=== PATIENT | male | born 2000 | race Caucasian/White ===

== ENCOUNTER 2024-08-26 04:04 | Observation (INO) | payer OTHER, SELFPAY ==
[2024-08-26] VITALS (16 sets, daily range): BP systolic 127–158; BP diastolic 58–97; PULSE 70–97; RESP 14–18; TEMP 36.6–37.6; O2SAT 95–100; BMI 32.1; BMI 32.2
--- NOTE | 2024-08-26 04:07 | EDS_ITS ---
HPI History of Present Illness Chief Complaint: Abd Pain PFSH PFS Medical History no medical history Home Medications ?Medication ?Instructions ?Recorded ?Last Taken ?Type NK 08/26/24 Unknown History Allergy/AdvReac Type Severity Reaction Status Date / Time No Known Allergies Allergy Verified 08/26/24 04:05 EXAM Physical Exam Const Vital Signs: 08/26/24 04:04 Temperature 99.6 F H Temperature Source Oral Pulse Rate 85 Respiratory Rate 14 Blood Pressure 158/97 H Blood Pressure Mean 117 Pulse Ox 100 Oxygen Delivery Method Room Air [facility] [place] Narrative Medical decision making narrative: HISTORY OF PRESENT ILLNESS: Chief complaint: Abdominal pain 24-year-old male no past medical surgical history presents with abdominal pain that began 2 hours prior to arrival. Notes associated chills but denies nausea or vomiting. He further states pain occurred suddenly. It was initially umbilical and generalized right lower quadrant. No discharge when he was urinating. Denies testicular pain. Denies frequency urgency or dysuria. No history abdominal surgery. Last bowel movement was yesterday. No vomiting no nausea. REVIEW OF SYSTEMS: Pertinent positives: Abdominal pain, chills Pertinent negatives: Vomiting PHYSICAL EXAM: Nursing triage notes reviewed, Vital signs reviewed Constitutional: please see [facility] HENT: MMM Eyes: Pupils equal round and reactive to light, Extraocular muscles intact Neck: No stridor, no JVD, full neck ROM Lungs: Clear to auscultation, No wheezing or rales. No increased work of breathing, no conversational dyspnea, no accessory muscle use, no nasal flaring. No respiratory distress noted Heart: Regular rate and rhythm, No murmurs, No rubs and No gallops, 2+ distal pulses (radial, femoral, posterior tibial) in all extremities Abdomen: Soft, right lower quadrant TTP but no rigidity, rebound or guarding, no obvious peritoneal signs, no palpable pulsatile abdominal masses, no auscultated abdominal bruit : No CVAT, normal testicular lie, no TTP , no mass. No scrotal edema or cellulitis Extremities: No edema Neuro: No new focal neurological deficits, cranial nerves II through XII intact, 5/5 strength in all present extremities. Intact sensation to light touch in all present extremities, 2+ reflexes bilateral patella tendons. Skin: No rash or lesions noted MEDICAL DECISION MAKING: Chief Complaint: please see [facility] External records reviewed: [Reviewed prior imaging studies: No recent adVanced imaging of the abdomen pelvis noted Factors affecting care: None Social determinants of health: Denies alcohol or illicit drug History obtained from others: none Consults: n General Surgery (Dr. Feng) MDM Narrative: The patient was initially hemodynamically stable, afebrile and nontoxic- appearing. Abdominal exam [with right lower quadrant TTP. No peritoneal signs. I considered the following differential diagnosis: AAA, small bowel obstruction, abdominal perforation, appendicitis, pancreatitis, hepatobiliary pathology (acute cholecystitis), mesenteric ischemia, pathology (ie nephrolithiasis, pyelonephritis). I obtained a broad lab and imaging to further determine if the patient was suffering from a life-threatening etiology. Initially assessed the patient 1 L normal saline, 4 mg IV Zofran and 15 mg IV Toradol ALL IMAGES (IF OBTAINED) HAVE BEEN PERSONALLY REVIEWED AND INTERPRETED BY MYSELF. CBC with leukocytosis suggestive of systemic inflammation, no anemia or thrombocytopenia CT scan abdomen pelvis is read and reviewed personally by myself and showed evidence of an inflamed appendix. Radiologist agreed my interpretation. Discussed with general surgery Dr. Feng. Noted he would come and see the patient. Awaiting Dr. Garza's final recommendations. Will give Zosyn in the meantime. The patient and/or family, caregivers express understanding. The patient and/or family, caregivers agrees with the plan. Shared decision making: I will have a discussion with the patient and or visitors regarding risk/benefits of further testing or admission. They will be made aware of of the risk/benefits inherent in this decision they will be given the opportunity to voice understanding. Total critical care time today provided was at least 35 minutes. This excludes separately billable procedures. Critical care time (if documented) is secondary to the patient having high probability of clinically significant/life threatening deterioration in the patient's condition which required my urgent intervention. Impression: 1. Acute abdominal pain 2. Acute appendicitis 3. Leukocytosis Dispo: Admit This note was generated with Re[employer]ee dictation software. It may contain incorrect words, spelling, and punctuation that were not noted in review of the chart prior to signing. Discharge Plan Triage Chief Complaint: Abd Pain ED Provider: Irvin Montalvo Dx/Rx/DC Orders Prescriptions: No Action NK Primary Care Provider: Care Physician,No Primary Referrals: Care Physician,No Primary [Primary Care Provider] - Print Language: Ukrainian
--- NOTE | 2024-08-26 04:13 | CT_ITS ---
PROCEDURE: ABDOMEN/PELVIS W IV CONT ONLY 08/26/2024 REASON FOR EXAM: RIGHT LOWER QUADRANT PAIN RULE OUT APPENDICITIS TECHNIQUE: ABDOMEN/PELVIS W IV CONT ONLY Coronal and Sagittal reconstruction series were provided. CONTRAST:VOLUME: mL One or more dose reduction techniques were used (e.g., Automated exposure control, adjustment of the mA and/or kV according to patient size, use of iterative reconstruction technique. RADIATION DOSE SUMMARY: CTDlvol: mGy DLP:mGycm COMPARISON: none FINDINGS: Relatively thickened appendix 8 mm in diameter with faint related fat stranding worrisome of appendicitis advise clinical and laboratory correlation. No obvious related collections. Average sized liver showing homogenous parenchymal attenuation. No dilated intra or extra-hepatic biliary tracts. Gall bladder showing no radiodense calculi. No abnormal mural thickening. Clear surrounding fat planes with no sizeable collections. Normal appearance of the pancreas with clear surrounding fat planes. The spleen, adrenal glands, aorta and IVC are unremarkable. Left renal lower calyceal 1 mm calculus. Bilateral renal hypodense cortical cysts, few of them show tiny calcifications. Both kidneys are of average size and showing smooth outline with preserved parenchymal thickness. No right renal calculi. No hydronephrosis. Distension of the urinary bladder showing no obvious masses. No obvious masses related to the pelvic viscera. The examined ascending colon, the transverse colon, the descending colon & small bowel loops are unremarkable. Diffuse wall thickening of the stomach. No ascites or free air. No obvious pathologically enlarged lymph nodes. Scanned osseous structures show no osseous destruction. Scanned lung bases show no obvious abnormalities. CT/Abdomen/Pelvis W IV Cont ONLY IMPRESSION: Relatively thickened appendix with faint related fat stranding worrisome of marilyn endicitis advise clinical and laboratory correlation. Left renal lower calyceal 1 mm calculus. Bilateral renal hypodense cortical cysts, few of them show tiny calcifications. Reading Location: [facility]
[2024-08-26] MEDS: 0.9% Normal Saline (1000mL) 1,000 ML 999 ML IV (04:19)
[2024-08-26 04:20] LABS: Hematocrit 44.8 % (40-54); Hemoglobin 15.4 g/dL (13.0-16.5); Immature Granulocytes Count 0.060 X10^3/uL (0.0-0.0); Mean Corp Hgb Conc 34.4 g/dL (32-36); Mean Corpuscular Volume 85.8 fL (80-94); Mean Platelet Vol. 9.4 fl (6.2-12.0); NRBC Flagged by Analyzer 0 % (0-5); Platelet Count 233 K/mm3 (150-450); RBC Distribution Width CV 12.1 % (11.6-14.6); RBC Distribution Width SD 37.5 fl (35.1-43.9); Red Blood Count 5.22 M/mm3 (4.6-6.2); White Blood Count 14.3 K/mm3 (4.4-11.0)
[2024-08-26] MEDS: Piperacil/Tazobactam 3.375 GM in 0.9% Normal Saline (50mL MB+) 50 ML IV (05:22)
[2024-08-26 05:25] LABS: AST(SGOT) 37 U/L (<=37); Alanine Aminotransfer ALT/SGPT 34 U/L (<=46); Albumin, Serum 4.7 g/dL (3.5-5.0); Alkaline Phosphatase 62 U/L (40-129); Anion Gap 12 (5-15); BUN 20 mg/dL (4-19); BUN/Creat Ratio 18.9 RATIO (10-20); Calcium,Total 9.3 mg/dL (7.6-11.0); Carbon Dioxide 25.1 mmol/L (21.0-32.0); Chloride 104 mmol/L (98-108); Estimated Creatinine Clearance 138.54 ml/min (50-250); Globulin 2.7 g/dL (2.2-4.2); Glucose 105 mg/dL (70-99); Lipase 37 U/L (13-75); Potassium 3.7 mmol/L (3.3-5.1)
[2024-08-26 05:42] LABS: Mucous, Urine 0 SEEN /hpf (<or=2+); Red Blood Cells-Urine 0 SEEN /hpf (0-5); Squamous Epithelial Cells - UA 0 SEEN /hpf (0-5)
[2024-08-26 05:44] LABS: Color, Urine Straw (Yellow); Glucose, Dipstick Normal (Normal); Ketone-Dipstick Negative (Negative); Leukocyte Esterase-Dipstick Negative /ul (Negative); Nitrite-Dipstick Negative (Negative); Occult Blood-Urine Negative /ul (Negative); Protein-Dipstick Negative (Negative); Specific Gravity, Urine 1.005 (1.002-1.030); Urine Bilirubin Dipstick Negative (Negative)
--- NOTE | 2024-08-26 07:57 | HP.PCM.SX_ITS ---
HPI - General General Date of Admission: 08/26/24 HPI Narrative NEMESIO BLACKWELL, is a 24 M who presents with right lower quadrant pain. He reports the pain started at 2 AM this morning. He says that it migrated from the periumbilical region to the right lower quadrant. He denies fevers or chills. He denies nausea or vomiting. PFSH Medical History no medical history Home Medications ?Medication ?Instructions ?Recorded ?Last Taken ?Type ascorbic acid (vitamin C) 1,000 mg 1 g PO DAILY supple ment 08/26/24 Unknown History tablet (C-1000) cholecalciferol (vitamin D3) .ROUTE supplemnt 08/26/24 Unknown History multivitamin 1 tab PO DAILY supplement Unknown History soybean, fermented 50 mg capsule mg PO BID blood thinn er/ htn 08/26/24 Unknown History (Nattokinase) Allergy/AdvReac Type Severity Reaction Status Date / Time No Known Allergies Allergy Verified 08/26/24 04:05 Surgical History (Updated 08/26/24 @ 06:16 by Kym Velez) [place] teeth extracted Social History Smoking Status: Never smoker Vital Signs Vital Signs Vital Signs: 08/26/24 04:04 08/26/24 05:17 08/26/24 05:23 Temperature 99.6 F H 98 F 98.6 F Temperature Source Oral Oral Pulse Rate 85 97 85 Respiratory Rate 14 14 14 Blood Pressure 158/97 H 147/84 H 155/88 H Blood Pressure Mean 117 105 110 Blood Pressure Source Monitor Blood Pressure Position Blood Pressure Location Pulse Ox 100 97 98 Oxygen Delivery Method Room Air Room Air 08/26/24 06:22 Temperature 98.3 F Temperature Source Oral Pulse Rate 85 Respiratory Rate 16 Blood Pressure 157/76 H Blood Pressure Mean 103 Blood Pressure Source Monitor Blood Pressure Position Semi-Fowlers Blood Pressure Location Right Arm Pulse Ox 99 Oxygen Delivery Method Room Air Weight Weight: 237 lb 14.06 oz Body Mass Index (BMI) 32.2 Physical Exam Const oriented x3 and no apparent distress Resp normal respiratory effort GI soft to palpation Palpation: tender RLQ Extremity normal to inspection Results Lab / Micro Data 08/26/24 04:09 08/26/24 04:09 Labs: Laboratory Results - last 24 hr 08/26/24 04:09: WBC 14.3 H, RBC 5.22, Hgb 15.4, Hct 44.8, MCV 85.8, MCH 29.5, MCHC 34.4, RDW Std Deviation 37.5, RDW Coeff of Bandar 12.1, Plt Count 233, MPV 9.4, Immature Gran % (Auto) 0.400, Neut % (Auto) 74.5 H, Lymph % (Auto) 15.4 L, Spink % (Auto) 8.2, Eos % (Auto) 1.2, Baso % (Auto) 0.3, Absolute Neuts (auto) 10.7 H, Absolute Lymphs (auto) 2.21, Nucleated RBC % 0, Sodium 141, Potassium 3.7, Chloride 104, Carbon Dioxide 25.1, Anion Gap 12, BUN 20 H, Creatinine 1.05, Estim Creat Clear Calc 138.54, Est GFR (MDRD) Non-Af 102, BUN/Creatinine Ratio 18.9, Glucose 105 H, Calcium 9.3, Total Bilirubin 0.46, AST 37, ALT 34, Alkaline Phosphatase 62, Total Protein 7.4, Albumin 4.7, Globulin 2.7, Albumin/Globulin Ratio 1.8, Lipase 37 08/26/24 05:25: Urine Color Straw, Urine Clarity Clear, Urine pH 7.0, Ur Specific [place] 1.005, Urine Protein Negative, Urine Glucose (UA) Normal, Urine Ketones Negative, Urine Occult Blood Negative, Urine Nitrite Negative, Urine Bilirubin Negative, Urine Urobilinogen Normal, Ur Leukocyte Esterase Negative, Urine RBC 0 SEEN, Urine WBC 0-5 SEEN, Ur Squamous Epith Cells 0 SEEN, Urine Bacteria 0 SEEN, Urine Mucus 0 SEEN Imaging Radiology Impression Abdomen/Pelvis CT 08/26/24 04:13 IMPRESSION: Relatively thickened appendix with faint related fat stranding worrisome of appendicitis advise clinical and laboratory correlation. Left renal lower calyceal 1 mm calculus. Bilateral renal hypodense cortical cysts, few of them show tiny calcifications. Reading [facility] Assessment & Plan Assessment/Plan (1) Acute appendicitis: QUALIFIERS: Acute appendicitis type: unspecified acute appendicitis type Qualified Code(s): K35.80 - Unspecified acute appendicitis PLAN: The patient has acute appendicitis based on his CT results and history. He also has a white count of 14. I discussed laparoscopic appendectomy with the patient in detail. I discussed the risks including but not limited to bleeding, infection, injury to other organs such as the bowel, bladder, ureter. Patient understands the risks and is willing to proceed. Marques Feng MD Pager: [facility] [address] [place] [address] [address] [place] [address] Office:
--- NOTE | 2024-08-26 08:00 | APP_PTH ---
PATIENT: NEMESIO BLACKWELL LOC: MS3 U#:[id number] AGE/SX: 24/M ROOM: MS316 RE08/26/[address]: Dr. Marques Feng MD : 2000 BED: 1 DIS: 08/26/2024 SPEC #: [id number] RECD: 08/26/24 13:30 STATUS: JIMBO ERVIN #: [id number] DENIS: 08/26/24 08:[address]: Marques Feng DEPT: SURGICAL PATHOLOGY RECD BY: Brayden Tesfaye ENTERED: 08/26/24 15:13 SP TYPE: APPENDIX OTHR DR: Marleni Primary Care Phys Tissues: A - Appendix, NOS Procedures: Surgery Specimen Level III HEADER OPERATION: Laparoscopic appendectomy PRE-OP DIAGNOSIS: Acute appendicitis TISSUE SUBMITTED: A- Appendix MICROSCOPIC DIAGNOSIS A. Appendix, acute appendicitis, appendectomy: Acute appendicitis with periappendicitis. MICROSCOPIC DESCRIPTION Slides are reviewed. GROSS DESCRIPTION Received in formalin labeled with the patient's name and date of . Designated as appendix is a 9.1 x 0.8 cm mendiola-pink appendix with a focal incision, nearly transecting the specimen. The margin is inked black and shaved. Sectioning reveals a mendiola-pink, focally congested mucosa and a possible fecalith. Pharmaceutical Salesperson sections are submitted in 1 cassette. IA 08/26/2024 CPT:48721
[2024-08-26] MEDS: 0.9% Normal Saline (1000mL) 1,000 ML 100 ML IV (08:37)
--- NOTE | 2024-08-26 10:11 | NURSING ---
Pt sent for surgery
--- NOTE | 2024-08-26 10:33 | PRE.ANES_ITS ---
ASA Classification* ASA Classification ASA Classification: 1 Assessment & Plan Anesthesia* Anesthesia Assessment Anesthesia Assessment: Discussed sedation and/or anesthesia options, risks, benefits, and alternatives with patient/parents/legal guardian/POA. Questions invited. The patient/parents/legal guardian/POA seems to understand and agrees to proceed with anesthesia plan. Reviewed the physical assessment, medical history, allergy history and patient home medications list prior to surgery/procedure/anesthetic and documented any changes. Performed airway and anesthesia risk assessments. Anesthesia Type Anesthesia Type: General History Source History Obtained from:: Patient and Chart Anesthesia Focused Assessment* Temperature: 98.5 F Pulse Rate: 78 Blood Pressure: 157/76 Respiratory Rate: 16 Pulse Ox: 97 Oxygen Delivery Method: Room Air Airway Assessment Mouth opens: >3 cm Mallampati Score: I Teeth Condition: Intact Neck Range of motion (ROM): Full ROM Labs Anesthesia Preop lab: CBC WBC 14.3 K/mm3 (4.4-11.0) H 08/26/24 04:09 5 RBC 5.22 M/mm3 (4.6-6.2) 08/26/24 04:09 08/26/24 Hgb 15.4 g/dL (13.0-16.5) 08/26/24 04:09 08/26/24 Hct 44.8 % (40-54) 08/26/24 04:09 08/26/24 Plt Count 233 K/mm3 (150-450) 08/26/24 04:09 08/26/24 CHEMISTRY Potassium 3.7 mmol/L (3.3-5.1) 08/26/24 04:09 08/26/24 Sodium 141 mmol/L (133-145) 08/26/24 04:09 08/26/24 BUN 20 mg/dL (4-19) H 08/26/24 04:09 08/26/24 Creatinine 1.05 mg/dL (0.70-1.20) 08/26/24 04:09 08/26/24 Glucose 105 mg/dL (70-99) H 08/26/24 04:09 08/26/24 COAG Pre-Assessment Diagnosis/Proposed Procedure Planned Operative Procedure(s): Laparoscopic appendectomy Anesthesia History 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 When Was Last Pacemaker Check QUESTION #4 FULL TEXT: You/Your Family Experience fever (hyperthermia) with Anesthesia Last Oral Intake Last Oral intake: Last Oral Intake NPO since Meds taken in AM with sips of No 08/26/24 08:30 water? 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 turbine technician Female HX of Motion Sickness HX of N/V After Surgery Non-Smoker Duration of Surgery greater than 60 minutes Number of Risk Factors PONV Score Height & Weight Height & Weight: Anesthesia: Height & Weight Height 6 ft 08/26/24 08:30 Weight: 107.9 kg 08/26/24 08:30 Body Mass Index (BMI) 32.2 08/26/24 08:30 Respiratory Assessment Respiratory Assessment - senior wind turbine technician: Respiratory Tract Infection Hx - senior wind turbine technician Hx Respiratory Tract Infection No 08/26/24 06:20 STOP Sleep Apnea STOP Sleep Apnea - senior wind turbine technician: STOP Sleep Apnea - senior wind turbine technician Hx Hypertension No 08/26/24 06:18 Hx Sleep Apnea No 08/26/24 06:18 CPAP BIPAP Do you snore loudly (louder No 08/26/24 06:18 than talking or can be heard Do you often feel tired/ No 08/26/24 06:18 fatigued/ sleepy during daytime? Has anyone observed you stop No 08/26/24 06:18 breathing during sleep? STOP Results Negative 08/26/24 06:18 QUESTION #5 FULL TEXT : Do you snore loudly (louder than talking or can be heard through closed doors)? 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 Specify any problems Hx of Preganancy in last 3 N/A 08/26/24 06:18 Months Nurse Filling Out Transfusion DREELOY 08/26/24 06:18 & Questions: Date: 08/26/24 08/26/24 06:18 Time: 06:18 08/26/24 06:18 Patient unable to answer at this time (ie. confused, unrespo /Reproduction History /Reproductive History - senior wind turbine technician: /Reproductive Hx- senior wind turbine technician Hx Now No 08/26/24 06:20 Gestational Age (in weeks): EDC: Hx Hx Para Hx Section SAB No 08/26/24 06:20 Active Medications Active Medications: Current Medications Generic Name Dose Route Start Last Admin Trade Name Freq PRN Reason Stop Dose Admin Sodium Chloride 250 mls @ 15 mls/hr 08/26/24 06:02 IV .[id number] PRN Saline Flush Sodium Chloride 250 mls @ 15 mls/hr 08/26/24 06:02 IV .[id number] PRN Additional IVPB Infusion Sodium Chloride 1,000 mls @ 100 mls/hr 08/26/24 07:40 08/26/24 08:37 IV 100 mls/hr .Q10H MONTRELL Administration Morphine Sulfate 2 - 4 mg 08/26/24 07:38 Morphine 2 Mg/Ml Syringe IV Q2H PRN PRN Pain Score 4-10 Morphine Sulfate 2 - 4 mg 08/26/24 07:52 Morphine 4 Mg/Ml Syringe IV Q2H PRN PRN Pain Score 4-10 Ondansetron HCl 4 mg 08/26/24 07:38 Ondansetron 4 Mg/2 Ml Vial IV Q6H PRN PRN NAUSEA/VOMITING Sodium Chloride 10 - 40 ml 08/26/24 06:02 0.9% Saline Lock 10 Ml Syringe IV UD PRN SALINE FLUSH Sodium Chloride 10 - 40 ml 08/26/24 07:38 0.9% Saline Lock 10 Ml Syringe IV UD PRN SALINE FLUSH Sodium Chloride 10 - 40 ml 08/26/24 07:38 0.9% Saline Lock 10 Ml Syringe IV UD PRN SALINE FLUSH PFSH Medical History no medical history Home Medications ?Medication ?Instructions ?Recorded ?Last Taken ?Type ascorbic acid (vitamin C) 1,000 mg 1 g PO DAILY supple ment 08/26/24 Unknown History tablet (C-1000) cholecalciferol (vitamin D3) .ROUTE supplemnt 08/26/24 Unknown History multivitamin 1 tab PO DAILY supplement Unknown History soybean, fermented 50 mg capsule mg PO BID blood thinn er/ htn 08/26/24 Unknown History (Nattokinase) Allergy/AdvReac Type Severity Reaction Status Date / Time No Known Allergies Allergy Verified 08/26/24 04:05 Surgical History [place] teeth extracted Social History Smoking Status: Never smoker Review of Systems (Anesthesia) ROS Narrative System reviewed and no additional complaints, except as documented.
[2024-08-26] MEDS: 0.9% Normal Saline (1000mL) 850 ML IV (10:34)
[2024-08-26] MEDS: fentaNYL 250mcg vial 100 ML 100 MCG IV (10:42)
[2024-08-26] MEDS: Midazolam 2 MG/2 ML Syringe IV (10:43)
[2024-08-26] MEDS: Bupiv/Epi 0.25% 30 ML Vial (11:17)
--- NOTE | 2024-08-26 11:38 | PCM.POST.ANE ---
Anesthesia: Postop Eval I Current Vital Signs Temperature: 98.9 F Pulse Rate: 95 Blood Pressure: 132/69 Respiratory Rate: 16 Pulse Ox: 95 Oxygen Delivery Method: Room Air Assessment Airway patent: Yes Spontaneous unlabored respirations: Yes Mental status: Awake and Calm nausea: No Vomiting: No Anesthesia Complication: No Fluid Hydration Crystalloid volume administer (ml): 850 Total IV fluid infused: 850 Progress Note Anesthesia document: Postop Eval 1 completed: Yes
--- NOTE | 2024-08-26 11:46 | PCM.OPRPT ---
Operative Report (Standard) Operative Information Date of Procedure: 08/26/24 Pre-Operative Diagnosis: Acute appendicitis Post-Operative Diagnosis: Acute appendicitis Surgery/Procedure Performed: Laparoscopic appendectomy supervisor blasting: No Type of Anesthesia: General/Regional RN Documented Start/Stop Times: Operation Date: 08/26/24 08:00 Case Time Into Pre-Op 08/26/24 09:58 Out of Pre-Op 08/26/24 10:30 Anesthesia Start 08/26/24 10:38 Into Room 08/26/24 10:38 Procedure Start 08/26/24 10:59 Procedure End 08/26/24 11:22 Anesthesia End 08/26/24 11:30 Into Recovery 08/26/24 11:30 Out of Room 08/26/24 11:30 Procedure Start Time: 10:59 Procedure Stop Time: 11:22 Select all DRAINS/GRAFTS/IMPLANTS that apply: None Estimated Blood Loss: 5 Specimen collected: Yes Description of specimen(s) removed: Appendix Description of surgery: The patient was brought into the operating room and general anesthesia was induced. The left arm was tucked and the abdomen was prepped and draped in usual sterile fashion. A small midline incision was made superior to the umbilicus and deepened to the level of the fascia. The fascia was elevated and incised. The peritoneum was also elevated and incised. A finger sweep was performed and a balloon trocar was placed into the abdomen and inflated. The abdomen was insufflated to 15 mmHg and the camera was inserted and the abdomen was inspected for any injuries upon entering the abdomen. There were none. The patient was placed in Trendelenburg position and a 5 mm ports placed in the left lower quadrant and suprapubic areas under direct visualization. Next using atraumatic bowel graspers the appendix was identified. The appendix was grasped and elevated and Enseal was used to take down the mesoappendix. A stapler was used to come across the base of the appendix. The appendix was then placed in Endo Catch bag and removed through the umbilical incision. The staple line was inspected and found to be hemostatic and intact. The 2 5 mm ports are removed under direct visualization. The balloon trocar was deflated and removed and all the air was removed from the abdomen. The umbilical incision fascia was closed with an 0 Vicryl [id number] suture. The incisions were then irrigated with saline and dried. Local anesthetic was injected into the incision sites. The skin incisions were then closed with interrupted 4-0 Monocryl suture and Steri-Strips. Bandages were applied and the patient was awoken and taken to PACU in stable condition. Patient tolerated the procedure well. Surgical Findings: Inflamed appendix Complications Complications: No Admit VTE Documentation VTE Mechan Device Prophylaxis: SCD's
--- NOTE | 2024-08-26 11:47 | DCINST_ITS ---
Discharge Instructions Diet Discharge Diet: Light diet - advance as tolerated Activity Discharge Activity: May Not Drive (for 2-3 days or while taking narcotic pain medications) May shower in (days): 1 Lifting Restrictions: 15 pounds for 2 weeks Additional Activity Instructions:: Alternate ibuprofen and Tylenol for pain control, oxycodone for breakthrough pain Dressing / Incision Call your doctor if your incision/area has: Continuous Slow Oozing, Sudden Increased Bleeding, Increased Pain/ Swelling, Increased Redness and Foul Smelling Discharge Call your doctor if you observe: Fever of 101 or Higher Suture Line Care: Avoid Pulling/Pushing and Avoid Pinching/Bending Remove Dressing in: 2 days Cleanse incision/area with: Soap & Water Follow Up Care Please Follow Up With: Marques Feng MD When: Please call to schedule 2 week follow up appointment at [phone] Test Results: Test results from this visit will be discussed in further detail at your follow- up appointment, if applicable. Discharge Plan Admission Admit Date/Time: 08/26/24 07:38 Attending Provider: Marques Feng Primary Care Provider: Care Physician,Marleni Primary Discharge Orders/Prescriptions Prescriptions: New oxycodone 5 mg Tablet 5 - 10 mg PO Q4H PRN PRN (Reason: Pain Score 4-10) 5 Days Qty: 10 0RF Continued Nattokinase 50 mg capsule PO BID ascorbic acid (vitamin C) [C-1000] 1,000 mg tablet 1 g PO DAILY cholecalciferol (vitamin D3) .ROUTE multivitamin 1 tab PO DAILY Referrals / Follow Up: Care Physician,No Primary [Primary Care Provider] - Disposition Disposition (needs filled in before D/C Order can be placed): Home, Self Care
[2024-08-26] MEDS: Lactated Ringers 1,000 ML 15 ML IV (12:14)
--- NOTE | 2024-08-26 13:42 | POSTOPAN2_ITS ---
Anesthesia Postop Eval I Sum Postop Eval Completion status Anesthesia document: Postop Eval 1 completed: Yes Anesthesia Postop Eval I Summary Anesthesia Postop Eval I Summary: Anesthesia Postop Eval I: Assessment Summary Airway patent Yes 08/26/24 11:39 IT INFRASTRUCTURE [email or web address] Spontaneous unlabored Yes 08/26/24 11:39 IT INFRASTRUCTURE [email or web address] respirations Mental status Awake,Calm 08/26/24 11:39 IT INFRASTRUCTURE [email or web address] nausea No 08/26/24 11:39 IT INFRASTRUCTURE [email or web address] Vomiting No 08/26/24 11:39 IT INFRASTRUCTURE [email or web address] Anesthesia Postop Eval I: Fluid Summary Crystalloid volume administer 850 08/26/24 11:39 IT INFRASTRUCTURE [email or web address] (ml) Colloids volume administered ( ml) Blood Product volume administered (ml) Total IV fluid infused 850 08/26/24 11:39 IT INFRASTRUCTURE [email or web address] Anesthesia Postop Eval I: Summary Notes Anesthesia Complication No 08/26/24 11:39 IT INFRASTRUCTURE [email or web address] Anesthesia Complication Comment: Post-operative progress note Anesthesia: Postop Eval II Evaluation Mental status: Awake and Calm Pain Level: 1 nausea: No Vomiting: No Complications Anesthesia Complication: No
--- NOTE | 2024-08-26 13:42 | PCM.POSTANE2 ---
Anesthesia Postop Eval I Sum Postop Eval Completion status Anesthesia document: Postop Eval 1 completed: Yes Anesthesia Postop Eval I Summary Anesthesia Postop Eval I Summary: Anesthesia Postop Eval I: Assessment Summary Airway patent Yes 08/26/24 11:39 PATTERN [email or web address] Spontaneous unlabored Yes 08/26/24 11:39 PATTERN [email or web address] respirations Mental status Awake,Calm 08/26/24 11:39 PATTERN [email or web address] nausea No 08/26/24 11:39 PATTERN [email or web address] Vomiting No 08/26/24 11:39 PATTERN [email or web address] Anesthesia Postop Eval I: Fluid Summary Crystalloid volume administer 850 08/26/24 11:39 PATTERN [email or web address] (ml) Colloids volume administered ( ml) Blood Product volume administered (ml) Total IV fluid infused 850 08/26/24 11:39 PATTERN [email or web address] Anesthesia Postop Eval I: Summary Notes Anesthesia Complication No 08/26/24 11:39 PATTERN [email or web address] Anesthesia Complication Comment: Post-operative progress note Anesthesia: Postop Eval II Evaluation Mental status: Awake and Calm Pain Level: 1 nausea: No Vomiting: No Complications Anesthesia Complication: No
--- NOTE | 2024-08-26 14:34 | CASEMGMT ---
RN CM into pt room, pt lying in bed in no distress with mother at bedside. Pt agreeable to discussion with mother present. Pt reports being indep in ADLs/IADLs. Provided pt with a local healthcare directory pamphlet. Pt denies need for assistance with setting up provider. Pt denies any homegoing needs.
[2024-08-26] MEDS: 0.9% Saline Lock 10 ML Syringe IV (15:09)
== END 2024-08-26 17:58 | disposition home or self-care (01) ==
LOC: ED 05:56 → MS3 06:21
PROVIDERS: Admitting Provider Surgery; Emergency Provider Emergency Medicine; Referring Provider Surgery; Visit Provider Surgery
PROC: 0DTJ4ZZ Resection of Appendix, Percutaneous Endoscopic Approach (ICD-10-PCS; CPT 44970; principal; 2024-08-26 10:10)
DX: K35.80 Unspecified acute appendicitis (principal)
CPT/HCPCS: 44970; 00840; 74177; 80053; 81001; 83690; 85025; 88304; 96361; 96365; 96375; 96376; 99221; 99284; Q9967; A4216; G0378; J2405